=== PATIENT | female | born 1995 | race Hispanic/Latino ===

== ENCOUNTER → 2024-02-08 07:32 | Outpatient (CLI) | payer OTHER, SELFPAY ==
--- NOTE | 2024-02-08 07:34 | DI.US.S_ITS ---
PROCEDURE: US PELVIC COMPLETE INDICATIONS: INFERTILITY. FOLLICLE COUNT/MEASURE. TECHNIQUE: Real-time scanning was performed of the pelvic organs, with image documentation. Additional endovaginal scanning was necessary due to incomplete visualization of the adnexal and endometrial structures by transabdominal scanning. COMPARISON: None. FINDINGS: Uterus: Uterus is anteverted and normal in size at 7 x 4.8 x 3.2 cm. The myometrium is fairly homogeneous. Venetian blinds appearance in lateral portion of uterus is seen which may represent adenomyosis. The endometrium measures 6.6 mm combined thickness. Complex appearing fluid within endocervical canal is seen. No gross endometrial mass. Ovaries: The right ovary measures 3.7 x 1.9 x 1.7 cm, with a calculated ovarian volume of 6.4 cc. The left ovary measures 2.8 x 2.5 x 1.5 cm, with a calculated ovarian volume of 5.5 cc. Greater than 28 follicles are seen in right ovary. Greater than 19 follicles are seen in left ovary. 6 x 4 x 5 mm and follicle is seen in right ovary. 9 x 5 x 6 mm follicle is also seen in right ovary. Other follicles all smaller than 5 mm in size. 6 x 5 x 6 mm follicle is seen in left ovary. Rest of the left ovarian follicles are less than 5 mm in size. No adnexal masses are seen. Other: No pathologic free abdominal or pelvic fluid. IMPRESSION: 1. Greater than 12 follicles are seen in each ovary with 2 greater than 5 mm follicles seen in right ovary and single greater than 5 mm follicle in left ovary as described above. Findings meet the [place] definition of polycystic ovaries. In the absence of ovulatory dysfunction or clinically/biochemically diagnosed hyperandrogenism, findings are non specific and do not indicate the presence of polycystic ovarian syndrome. 2. Small amount of complex appearing endometrial fluid. No gross endometrial mass. 3. Venetian blinds appearance of the uterus which may represent adenomyosis. We strive to produce accurate, complete, and clear reports of imaging services. To assist us in improving patient care, this report was composed using standard report templates and voice recognition software. Therefore, it may contain abnormal punctuation, insertions and/or omissions. Occasional wrong-word or sound-alike substitutions may occur. Though we review the report and make efforts to correct it, we do recommend that the report be read carefully in proper context to recognize any text inaccuracies. Dictated by: Kendrick Conley M.D. on 02/08/2024 at 10:48 Approved by: Kendrick Conley M.D. on 02/08/2024 at 11:03
[2024-02-08 08:55] LABS: Add Manual Diff / Slide Review NO; Basophils Absolute Auto 0 /uL (0-100); Basophils Percent Auto 0.4 % (0-2); Eosinophils Absolute Auto 100 /uL (0-450); Eosinophils Percent Auto 1.2 % (2-4); Hematocrit 38.2 % (36-46); Hemoglobin 12.8 g/dL (12.0-16.0); Lymphocytes Absolute Auto 2300 /uL (1100-4500); Lymphocytes Percent Auto 27.3 % (25-40); Mean Corpuscular HGB Conc 33.6 % (30-36); Mean Corpuscular Hemoglobin 27.6 PG (26-34); Mean Corpuscular Volume 82.2 fL (80-100); Monocytes Absolute Auto 500 /uL (0-900); Monocytes Percent Auto 5.7 % (3-14); Neutrophils Absolute Auto 5600 /uL (1500-7000); Neutrophils Percent Auto 65.4 % (50-75); Platelet Count 348 X10^3/uL (150-400); Red Blood Cell Count 4.64 X10^6/uL (4.0-5.2); Red Cell Distribution Width 13.8 % (11.6-14.8); White Blood Cell Count 8.6 X10^3/uL (4.5-11.0)
[2024-02-08 09:02] LABS: Hemoglobin A1C% w Est Avg Glu 5.4 % (4.0-6.0)
[2024-02-08 09:09] LABS: Alanine Aminotransferase 19 IU/L (<35); Albumin 4.2 g/dL (3.5-5.0); Albumin Globulin Ratio 1.2 (1.0-2.8); Alkaline Phosphatase 82 U/L (38-126); Aspartate Aminotransferase 24 IU/L (14-36); BUN Creatinine Ratio 22.6 (6-22); Bilirubin Total 0.7 mg/dL (0.2-1.3); Blood Urea Nitrogen 14 mg/dL (7-17); Calcium 9.4 mg/dL (8.4-10.2); Carbon Dioxide 27 mmol/L (22-32); Chloride 103 mmol/L (98-107); Estimated Glomerular Filt Rate > 60 mL/min (>60); Globulin 3.6 g/dL (1.7-4.1); Glucose 94 mg/dL (70-100); HEMOLYSIS < 15 (0-50); Potassium 3.9 mmol/L (3.4-5.1); Sodium 139 mmol/L (137-145); Total Protein 7.8 g/dL (6.3-8.2)
[2024-02-08 09:23] LABS: Follicle Stimulating Hormone 5.38 mIU/mL; Luteinizing Hormone 9.07 mIU/mL
[2024-02-08 09:39] LABS: Estradiol, Total 58.3 pg/mL
[2024-02-11 23:58] LABS: Anti Mullerian Hormone 6.28 ng/mL (.)
== END ==
PROVIDERS: PCP Family Medicine; Referring Provider Family Medicine; Visit Provider Family Medicine
DX: N97.0 Female infertility associated with anovulation (principal)
CPT/HCPCS: 36415; 76830; 76856; 80053; 82397; 82670; 83001; 83002; 83036; 84443; 85025

== ENCOUNTER → 2024-03-07 07:50 | Outpatient (CLI) | payer OTHER, SELFPAY ==
[2024-03-07 08:42] LABS: COVID-19 CEPHEID 4-PLEX PCR Negative (Negative); Influenza A - CEPHEID Flu A NEGATIVE (NEGATIVE); Influenza B - CEPHEID Flu B NEGATIVE (NEGATIVE); Respiratory Syncytial Virus Negative (Negative)
== END ==
PROVIDERS: PCP Family Medicine; Visit Provider Physician Assistant Surgical
DX: R50.9 Fever, unspecified (principal)
CPT/HCPCS: 0241U

== ENCOUNTER → 2024-04-19 09:58 | Outpatient (CLI) | payer OTHER, SELFPAY ==
[2024-04-19 10:45] LABS: Add Manual Diff / Slide Review NO; Basophils Absolute Auto 100 /uL (0-100); Basophils Percent Auto 0.5 % (0-2); Eosinophils Absolute Auto 100 /uL (0-450); Eosinophils Percent Auto 1.3 % (2-4); Hematocrit 36.8 % (36-46); Hemoglobin 12.7 g/dL (12.0-16.0); Lymphocytes Absolute Auto 2500 /uL (1100-4500); Mean Corpuscular HGB Conc 34.3 % (30-36); Mean Corpuscular Hemoglobin 27.9 PG (26-34); Mean Corpuscular Volume 81.3 fL (80-100); Monocytes Absolute Auto 600 /uL (0-900); Monocytes Percent Auto 5.4 % (3-14); Neutrophils Absolute Auto 7500 /uL (1500-7000); Neutrophils Percent Auto 69.8 % (50-75); Platelet Count 369 X10^3/uL (150-400); Red Blood Cell Count 4.53 X10^6/uL (4.0-5.2); Red Cell Distribution Width 13.7 % (11.6-14.8); White Blood Cell Count 10.7 X10^3/uL (4.5-11.0)
[2024-04-19 11:08] LABS: HEMOLYSIS < 15 (0-50); Iron 52 ug/dL (37-170)
[2024-04-19 11:18] LABS: Percent Iron Saturation 15 % (15-50); Total Iron Binding Capacity 346 ug/dL (265-497); Transferrin 261 mg/dL (206-381)
[2024-04-19 11:45] LABS: HCG Quantitative /Beta subunit < 2.39 mIU/mL
[2024-04-19 11:46] LABS: Ferritin 25 ng/mL (6-137)
== END ==
PROVIDERS: PCP Family Medicine; Referring Provider Family Medicine; Visit Provider Family Medicine
DX: N92.0 Excessive and frequent menstruation with regular cycle (principal); N93.9 Abnormal uterine and vaginal bleeding, unspecified
CPT/HCPCS: 36415; 82728; 83540; 83550; 84702; 85025

== ENCOUNTER 2024-08-20 17:31 | Emergency (ER) | payer OTHER, SELFPAY ==
[2024-08-20 17:40] VITALS: BP 155/100; PULSE 103; RESP 18; TEMP 36.9; O2SAT 100; BMI 46.0
--- NOTE | 2024-08-20 18:16 | DI.US.S_ITS ---
PROCEDURE: US PELVIC COMPLETE INDICATIONS: HEAVY MENSTRUAL BLEEDING TECHNIQUE: Real-time scanning was performed of the pelvic organs, with image documentation. Additional endovaginal scanning was necessary due to incomplete visualization of the adnexal and endometrial structures by transabdominal scanning. COMPARISON: [facility], [place], US PELVIC COMPLETE, 02/08/2024, 7:42. FINDINGS: Uterus: Uterus is anteverted and normal in size at 7.0 x 3.5 x 4.8 cm. The myometrium is homogeneous. The endometrium measures 7.1 mm combined thickness. Ovaries: The right ovary measures 2.8 x 2.4 x 1.5 cm, with a calculated ovarian volume of 5.1 cc. The left ovary measures 1.3 x 2.5 x 1.6 cm, with a calculated ovarian volume of 2.7 cc. The ovaries have a normal sonographic appearance. Less than 12 follicles can be seen in each ovary. No adnexal masses are seen. Other: No pathologic free abdominal or pelvic fluid. IMPRESSION: Normal ultrasound of the pelvis Approved by: Daniel Chavez M.D. on 08/20/2024 at 18:49
[2024-08-20 18:49] LABS: Add Manual Diff / Slide Review NO; Basophils Absolute Auto 100 /uL (0-100); Basophils Percent Auto 0.4 % (0-2); Eosinophils Absolute Auto 100 /uL (0-450); Eosinophils Percent Auto 0.8 % (2-4); Hematocrit 35.5 % (36-46); Hemoglobin 11.8 g/dL (12.0-16.0); Lymphocytes Absolute Auto 3700 /uL (1100-4500); Lymphocytes Percent Auto 26.4 % (25-40); Mean Corpuscular HGB Conc 33.4 % (30-36); Mean Corpuscular Hemoglobin 27.4 PG (26-34); Monocytes Absolute Auto 700 /uL (0-900); Monocytes Percent Auto 5.4 % (3-14); Neutrophils Absolute Auto 9300 /uL (1500-7000); Platelet Count 419 X10^3/uL (150-400); Red Blood Cell Count 4.32 X10^6/uL (4.0-5.2); Red Cell Distribution Width 14.1 % (11.6-14.8); White Blood Cell Count 13.8 X10^3/uL (4.5-11.0)
[2024-08-20 18:53] LABS: Appearance Urine UA SL CLOUDY; Bilirubin Urine UA NEGATIVE (NEGATIVE); Color Urine UA YELLOW; Glucose Urine UA NEGATIVE (Negative); Ketones Urine UA NEGATIVE (NEGATIVE); Leukocyte Esterase Urine UA TRACE (NEGATIVE); Nitrite Urine UA NEGATIVE (Negative); Occult Blood Urine UA 3+ (Negative); Protein Urine UA NEGATIVE (Negative)
[2024-08-20 18:59] LABS: Pregnancy Test Urine Negative (Negative)
[2024-08-20 19:00] LABS: Urine Volume 10mL (spun)
[2024-08-20 19:01] LABS: Bacteria Urine None Seen; RBC Urine 30-100/HPF (0-5/HPF); WBC Urine None Seen (0-5/HPF)
[2024-08-20 19:02] LABS: Culture Indicated Urine Cult Not Indicated; Squamous Epithelial Cell Urine None Seen (0-5/HPF)
[2024-08-20 19:03] LABS: BUN Creatinine Ratio 14.7 (6-22); Blood Urea Nitrogen 11 mg/dL (7-17); Calcium 8.9 mg/dL (8.4-10.2); Carbon Dioxide 27 mmol/L (22-32); Chloride 102 mmol/L (98-107); Estimated Glomerular Filt Rate > 60 mL/min (>60); Glucose 110 mg/dL (70-100); HEMOLYSIS < 15 (0-50); Potassium 3.7 mmol/L (3.4-5.1); Sodium 137 mmol/L (137-145)
--- NOTE | 2024-08-20 20:01 | ED_ITS ---
HPI - General Adult General Chief complaint: Vaginal Bleeding Stated complaint: heavy menstral bleeding Time Seen by Provider: 08/20/24 18:15 Source: patient Mode of arrival: Ambulatory History of Present Illness HPI narrative: 29-year-old female who is here for evaluation of heavy vaginal bleeding. Has been has been symptoms for the past couple days but it has increased over the past 24 hours. No fevers. No abdominal pain. No change in bowel habits. No urinary symptoms. This is not the normal time for her menstrual cycle. She was not anticoagulation. She was started on progesterone a proximally 7-10 days ago by her primary doctor. Related Data Home Medications Medication Instructions Recorded Confirmed L. crispatus, gasseri, jensenii, tab PO 01/26/24 08/09/24 rhamnosus 12 billion cell chew tablet (Culturelle Probiotic) multivitamin (Multiple Vitamins 1 tab PO DAILY 01/26/24 08/09/24 tablet) medroxyprogesterone 10 mg tablet mg PO 05/24/24 08/09/24 Previous Rx's Medication Instructions Recorded propranolol 10 mg tablet 10 mg PO TID #30 tabs 05/24/24 escitalopram oxalate 5 mg tablet 10 mg (2 x 5 mg) PO DAILY #60 tabs 06/01/24 metformin 500 mg tablet,extended 500 mg PO BID #60 tabs 06/01/24 release 24 hr norethindrone (contraceptive) 0.35 0.35 mg PO DAILY #28 tabs 08/09/24 mg tablet phentermine 15 mg capsule 15 mg PO DAILY #30 caps 08/09/24 ondansetron 4 mg disintegrating 4 mg PO Q8-12H PRN nausea and 08/11/24 tablet vomiting #30 tabs Allergies Allergy/AdvReac Type Severity Reaction Status Date / Time Latex, Natural Rubber Allergy Severe Hives Verified 08/20/24 18:19 mint AdvReac Intermediate Hives Verified 08/09/24 15:07 Crab AdvReac Severe Hives Uncoded 08/09/24 15:07 Review of Systems Review of Systems ROS Unobtainable: All systems reviewed & are unremarkable except as noted in HPI and below Patient History Medical History Obesity, morbid, BMI 40.0-49.9 Plantar fasciitis Episode of heavy vaginal bleeding Depression (~2020) Anxiety (~2020) Migraines Herniated disc (~2021) Chicken pox (~1997) Tinnitus Irregular menstrual cycle Heavy menstrual period Gastritis Hypertension (~2021) PCOS (polycystic ovarian syndrome) Infertility Family History (Updated 02/21/24 @ 21:07 by Karen Cortés) Father Fibromyalgia Diabetes mellitus Mother Tachycardia Arthritis Hypertension Mental health problem Grandfather Diabetes mellitus Grandmother Diabetes mellitus Social History Smoking Status: Former smoker Smoking Status: Former smoker tobacco type: e-cigarettes alcohol intake frequency: holidays/special occasions only Substance Use Type: does not use Exam Initial Vital Signs Initial Vital Signs: Vital Signs Temperature 98.4 F 08/20/24 17:40 Pulse Rate 103 H 08/20/24 17:40 Respiratory Rate 18 08/20/24 17:40 Blood Pressure 155/100 H 08/20/24 17:40 Pulse Oximetry 100 08/20/24 17:40 Oxygen Delivery Method Room Air 08/20/24 17:40 Const General: cooperative and comfortable HENMT Head: normal to inspection and normocephalic Resp Effort & Inspection: normal respiratory effort Cardio Rate: regular rate GI Inspection: normal to inspection and non-distended Neuro General: patient alert and patient awake Course Orders Ordered: ED Orders 08/20/24 18:16 US pelvic complete Stat 08/20/24 18:28 Basic Metabolic Panel Stat Complete Blood Count AUTO DIFF Stat Type and Screen Stat 08/20/24 18:40 Test Urine Stat Urinalysis and Microscopic Stat 08/20/24 20:02 Hemoglobin and Hematocrit Stat Vital Signs Vital signs: Vital Signs - 8 hr 08/20/24 20:06 08/20/24 20:07 08/20/24 20:07 Temperature Pulse Rate 101 H 101 H Respiratory Rate 18 Blood Pressure 133/91 H Pulse Oximetry 100 100 Oxygen Delivery Method 08/20/24 20:30 08/20/24 20:30 08/20/24 21:00 Temperature 98.2 F Pulse Rate 92 H Respiratory Rate 16 Blood Pressure 143/80 H 120/69 Pulse Oximetry 99 Oxygen Delivery Method Room Air 08/20/24 21:00 Temperature Pulse Rate 103 H Respiratory Rate Blood Pressure Pulse Oximetry 99 Oxygen Delivery Method Medical Decision Making Lab Data Lab results reviewed: Yes I reviewed the patient's lab results. 08/20/24 20:02 08/20/24 18:28 Labs: Lab Results 08/20/24 08/20/24 08/20/24 Range/Units 18:28 18:40 20:02 WBC 13.8 H (4.5-11.0) X10^3/uL RBC 4.32 (4.0-5.2) X10^6/uL Hgb 11.8 L 11.8 L (12.0-16.0) g/dL Hct 35.5 L 35.5 L (36-46) % MCV 82.0 (80-100) fL MCH 27.4 (26-34) PG MCHC 33.4 (30-36) % RDW 14.1 (11.6-14.8) % Plt Count 419 H (150-400) X10^3/uL Neut % (Auto) 67.0 (50-75) % Lymph % (Auto) 26.4 (25-40) % Miner % (Auto) 5.4 (3-14) % Eos % (Auto) 0.8 L (2-4) % Baso % (Auto) 0.4 (0-2) % Neut # (Auto) 9300 H (5318-1144) /uL Lymph # (Auto) 3700 (7846-4409) /uL Miner # (Auto) 700 (0-900) /uL Eos # (Auto) 100 (0-450) /uL Baso # (Auto) 100 (0-100) /uL Sodium 137 (137-145) mmol/L Potassium 3.7 (3.4-5.1) mmol/L Chloride 102 (98-107) mmol/L Carbon Dioxide 27 (22-32) mmol/L BUN 11 (7-17) mg/dL Creatinine 0.75 (0.52-1.04) mg/dL Estimated GFR > 60 (>60) mL/min BUN/Creatinine Ratio 14.7 (6-22) Glucose 110 H (70-100) mg/dL Calcium 8.9 (8.4-10.2) mg/dL Urine Color Yellow Urine Appearance Sl cloudy Urine pH 7.0 (4.5-8.0) Ur Specific [place] 1.010 (1.000-1.035) Urine Protein Negative (Negative) Urine Glucose (UA) Negative (Negative) g/dL Urine Ketones Negative (NEGATIVE) Urine Occult Blood 3+ H (Negative) Urine Nitrate Negative (Negative) Urine Bilirubin Negative (NEGATIVE) Urine Urobilinogen 1.0 (0.2) E.U./dL Ur Leukocyte Esterase Trace H (NEGATIVE) Urine RBC 30-100/hpf H (0-5/HPF) Urine WBC None seen (0-5/HPF) Ur Squamous Epith Cells None seen (0-5/HPF) Urine Bacteria None seen (None) Ur Culture Indicated? Cult not indicated Vol Urine Centrifuged 10ml (spun) Urine Test Negative (Negative) Blood Type O Positive Antibody Screen Negative Imaging Data US - [employer]ER: Radiologist's Impression: PROCEDURE: US PELVIC COMPLETE INDICATIONS: HEAVY MENSTRUAL BLEEDING TECHNIQUE: Real-time scanning was performed of the pelvic organs, with image documentation. Additional endovaginal scanning was necessary due to incomplete visualization of the adnexal and endometrial structures by transabdominal scanning. COMPARISON: [facility], , US PELVIC COMPLETE, 02/08/2024, 7:42. FINDINGS: Uterus: Uterus is anteverted and normal in size at 7.0 x 3.5 x 4.8 cm. The myometrium is homogeneous. The endometrium measures 7.1 mm combined thickness. Ovaries: The right ovary measures 2.8 x 2.4 x 1.5 cm, with a calculated ovarian volume of 5.1 cc. The left ovary measures 1.3 x 2.5 x 1.6 cm, with a calculated ovarian volume of 2.7 cc. The ovaries have a normal sonographic appearance. Less than 12 follicles can be seen in each ovary. No adnexal masses are seen. Other: No pathologic free abdominal or pelvic fluid. IMPRESSION: Normal ultrasound of the pelvis MDM Narrative Medical decision making narrative: Ultrasound is unremarkable. test is negative. Hemoglobin hematocrit unchanged during her time here in the emergency department. Had a discussion with the patient regarding her symptoms. She understands the lack of a definitive diagnosis. Unsure as to whether or not the increased bleeding is from the recent administration of progesterone. There was no indication for admission to the hospital. Advised that she contact her primary provider for follow-up. Discharge Plan Departure Patient Disposition: Home Clinical Impression: Abnormal vaginal bleeding Instructions: DI for Vaginal Bleeding Activity Restrictions/Additional Instructions: Continue to take all of your medications as directed. I recommend that tomorrow you contact your primary care doctor to discuss potentially changing any of your medications. Return to the emergency department for new symptoms. Prescriptions: No Action multivitamin [Multiple Vitamins] Tablet 1 tab PO DAILY Culturelle Probiotic 12 billion cell tablet,chewable PO phentermine 15 mg capsule 15 mg PO DAILY Qty: 30 0RF Rx Instructions: must administer 2 hours after breakfast norethindrone (contraceptive) 0.35 mg tablet 0.35 mg PO DAILY Qty: 28 1RF ondansetron 4 mg tablet,disintegrating 4 mg PO Q8-12H PRN (Reason: nausea and vomiting) Qty: 30 0RF medroxyprogesterone 10 mg tablet PO propranolol 10 mg tablet 10 mg PO TID Qty: 30 1RF metformin 500 mg tablet extended release 24 hr 500 mg PO BID Qty: 60 2RF escitalopram oxalate 5 mg tablet 10 mg PO DAILY Qty: 60 4RF Referrals: Audra Saba MD [Primary Care Provider] - Stand Alone Forms: Patient Portal/API, Work Release Note
[2024-08-20 20:06] VITALS: PULSE 101; O2SAT 100
[2024-08-20 20:07] VITALS: BP 133/91; PULSE 101; RESP 18; O2SAT 100
[2024-08-20 20:12] LABS: Hematocrit 35.5 % (36-46); Hemoglobin 11.8 g/dL (12.0-16.0)
[2024-08-20 20:30] VITALS: BP 143/80; PULSE 92; O2SAT 99
[2024-08-20 21:00] VITALS: BP 120/69; PULSE 103; RESP 16; TEMP 36.8; O2SAT 99
== END 2024-08-20 21:05 | disposition home or self-care (01) ==
PROVIDERS: Emergency Medicine; Emergency Provider Emergency Medicine; PCP Family Medicine
DX: N93.9 Abnormal uterine and vaginal bleeding, unspecified (principal); Z79.899 Other long term (current) drug therapy
CPT/HCPCS: 36415; 76830; 76856; 80048; 81001; 81025; 85014; 85018; 85025; 86850; 86900; 86901; 99283; 99284

== ENCOUNTER → 2025-11-02 10:08 | Outpatient (CLI) | payer OTHER, SELFPAY ==
[2025-11-02 10:50] LABS: Influenza A - CEPHEID Flu A NEGATIVE (NEGATIVE); Influenza B - CEPHEID Flu B NEGATIVE (NEGATIVE)
[2025-11-02 10:53] LABS: COVID-19 CEPHEID 4-PLEX PCR Negative (Negative)
== END ==
PROVIDERS: PCP Family Medicine; Visit Provider Nurse Practitioner Family
DX: R05.1 Acute cough (principal)
CPT/HCPCS: 87637